=== PATIENT | male | born 1970 | race Caucasian/White ===

== ENCOUNTER → 2021-11-18 09:39 | Outpatient (CLI) | payer OTHER, SELFPAY ==
[2021-11-18 19:45] LABS: Add Manual Diff / Slide Review NO; Basophils Absolute Auto 0 /uL (0-100); Basophils Percent Auto 0.5 % (0-2); Eosinophils Absolute Auto 0 /uL (0-450); Eosinophils Percent Auto 0.9 % (2-4); Hemoglobin 14.9 g/dL (13.5-17.5); Lymphocytes Absolute Auto 2200 /uL (1100-4500); Lymphocytes Percent Auto 45.6 % (25-40); Mean Corpuscular HGB Conc 33.8 % (30-36); Mean Corpuscular Hemoglobin 31.1 PG (26-34); Mean Corpuscular Volume 91.9 fL (80-100); Monocytes Absolute Auto 400 /uL (0-900); Monocytes Percent Auto 7.7 % (3-14); Neutrophils Absolute Auto 2200 /uL (1500-7000); Neutrophils Percent Auto 45.3 % (50-75); Platelet Count 215 X10^3/uL (150-400); Red Blood Cell Count 4.79 X10^6/uL (4.5-5.9); Red Cell Distribution Width 13.5 % (11.6-14.8); White Blood Cell Count 4.8 X10^3/uL (4.5-11.0)
[2021-11-18 19:50] LABS: Alanine Aminotransferase 32 IU/L (<50); Albumin 4.3 g/dL (3.5-5.0); Albumin Globulin Ratio 1.4 (1.0-2.8); Alkaline Phosphatase 56 U/L (38-126); Aspartate Aminotransferase 36 IU/L (17-59); BUN Creatinine Ratio 15.6 (6-22); Bilirubin Total 0.4 mg/dL (0.2-1.3); Blood Urea Nitrogen 14 mg/dL (9-20); Calcium 8.8 mg/dL (8.4-10.2); Carbon Dioxide 29 mmol/L (22-32); Chloride 103 mmol/L (98-107); Cholesterol 167 mg/dL (140-199); Estimated Glomerular Filt Rate > 60 mL/min (>60); Glucose 105 mg/dL (70-100); HDL Cholesterol 36 mg/dL (40-60); HEMOLYSIS < 15 (0-50); Hemoglobin A1C% w Est Avg Glu 5.3 % (4.0-6.0); LDL Cholesterol Calculated 120 mg/dL (<100); Potassium 4.5 mmol/L (3.4-5.1); Sodium 139 mmol/L (137-145); Total Protein 7.3 g/dL (6.3-8.2); Triglycerides 56 mg/dL (35-150)
== END ==
PROVIDERS: PCP Family Medicine; Visit Provider Family Medicine
DX: Z00.00 Encounter for general adult medical examination without abnormal findings (principal)
CPT/HCPCS: 80053; 80061; 83036; 84153; 85025

== ENCOUNTER → 2022-06-29 12:10 | Outpatient (CLI) | payer OTHER, SELFPAY ==
[2022-06-29 19:35] LABS: Add Manual Diff / Slide Review NO; Basophils Absolute Auto 0 /uL (0-100); Basophils Percent Auto 0.3 % (0-2); Eosinophils Absolute Auto 0 /uL (0-450); Eosinophils Percent Auto 0.5 % (2-4); Hematocrit 43.6 % (41-53); Hemoglobin 14.8 g/dL (13.5-17.5); Lymphocytes Absolute Auto 1900 /uL (1100-4500); Lymphocytes Percent Auto 40.4 % (25-40); Mean Corpuscular Hemoglobin 30.9 PG (26-34); Mean Corpuscular Volume 90.9 fL (80-100); Monocytes Absolute Auto 300 /uL (0-900); Neutrophils Absolute Auto 2400 /uL (1500-7000); Neutrophils Percent Auto 51.8 % (50-75); Platelet Count 233 X10^3/uL (150-400); Red Blood Cell Count 4.79 X10^6/uL (4.5-5.9); Red Cell Distribution Width 13.6 % (11.6-14.8); White Blood Cell Count 4.7 X10^3/uL (4.5-11.0)
[2022-06-29 19:49] LABS: Rheumatoid Factor < 8.6 IU/mL (<12.0)
[2022-06-29 19:53] LABS: Alanine Aminotransferase 37 IU/L (<50); Albumin 4.2 g/dL (3.5-5.0); Albumin Globulin Ratio 1.5 (1.0-2.8); Alkaline Phosphatase 67 U/L (38-126); Aspartate Aminotransferase 39 IU/L (17-59); BUN Creatinine Ratio 14.9 (6-22); Bilirubin Total 0.7 mg/dL (0.2-1.3); Blood Urea Nitrogen 14 mg/dL (9-20); C-Reactive Protein Quant < 0.5 mg/dL (<1.0); Calcium 8.8 mg/dL (8.4-10.2); Carbon Dioxide 27 mmol/L (22-32); Chloride 104 mmol/L (98-107); Estimated Glomerular Filt Rate > 60 mL/min (>60); Globulin 2.8 g/dL (1.7-4.1); Glucose 87 mg/dL (70-100); HEMOLYSIS < 15 (0-50); Potassium 4.2 mmol/L (3.4-5.1); Sodium 139 mmol/L (137-145)
[2022-06-29 19:54] LABS: Erythrocyte Sedimentation Rate 1 MM/HR (0-15)
[2022-07-02 13:37] LABS: CCP Antibodies IgG/IgA 5 units (0-19)
[2022-07-03 18:22] LABS: ANA Screen, IFA Negative (.)
== END ==
PROVIDERS: PCP Family Medicine; Visit Provider Family Medicine
DX: L40.9 Psoriasis, unspecified (principal); M79.641 Pain in right hand; M79.642 Pain in left hand; Z79.1 Long term (current) use of non-steroidal anti-inflammatories (NSAID)
CPT/HCPCS: 80053; 85025; 85651; 86038; 86140; 86200; 86430

== ENCOUNTER → 2022-07-20 10:57 | Outpatient (CLI) | payer OTHER, SELFPAY ==
[2022-07-20 19:49] LABS: Cholesterol 145 mg/dL (140-199); HDL Cholesterol 37 mg/dL (40-60); LDL Cholesterol Calculated 98 mg/dL (<100); Triglycerides 51 mg/dL (35-150)
[2022-07-22 02:02] LABS: x Labcorp Estim. Avg Glu (eAG) 114 mg/dL (.); x Labcorp Hemoglobin A1c 5.6 % (4.8-5.6)
== END ==
PROVIDERS: PCP Family Medicine; Visit Provider Family Medicine
DX: R03.0 Elevated blood-pressure reading, without diagnosis of hypertension (principal); R73.9 Hyperglycemia, unspecified
CPT/HCPCS: 80061; 83036

== ENCOUNTER → 2022-11-16 14:07 | Outpatient (CLI) | payer OTHER, MEDICAID, SELFPAY ==
[2022-11-16 20:34] LABS: Erythrocyte Sedimentation Rate 1 MM/HR (0-15)
[2022-11-25 20:17] LABS: HLA B27 Negative (.)
== END ==
PROVIDERS: PCP Family Medicine; Visit Provider Internal Medicine Rheumatology
DX: M79.641 Pain in right hand (principal); M79.642 Pain in left hand; M79.671 Pain in right foot; M79.672 Pain in left foot; L40.9 Psoriasis, unspecified
CPT/HCPCS: 81374; 85651

== ENCOUNTER 2023-04-05 14:24 | Emergency (ER) | payer OTHER, SELFPAY ==
[2023-04-05 14:31] VITALS: BP 148/87; PULSE 82; RESP 16; TEMP 37.3; O2SAT 98; BMI 27.1
--- NOTE | 2023-04-05 14:47 | DI.US.S_ITS ---
PROCEDURE: US PERIPH VENOUS LOW EXTREM LT INDICATIONS: PAIN AND RECENT TRAVEL TECHNIQUE: Real-time imaging, as well as color and pulse Doppler interrogation, were performed of the lower extremity deep veins from the inguinal ligament to the popliteal fossa, with documentation of the visualized calf veins. COMPARISON: None. FINDINGS: There is occlusion of the paired posterior tibial veins. IMPRESSION: DVT within the posterior tibial veins. Dictated by: Betty Moscoso M.D. on 04/05/2023 at 16:20 Approved by: Betty Moscoso M.D. on 04/05/2023 at 16:21
--- NOTE | 2023-04-05 15:43 | ED_ITS ---
HPI - Extremity Problem <Carmela Phillips PA-C - Last Filed: 04/06/23 11:11> General Chief complaint: Extremity Problem,Nontraumatic Stated complaint: sent by pcp to rule out blood clot L leg Time Seen by Provider: 04/05/23 14:47 Source: patient Mode of arrival: Ambulatory History of Present Illness HPI Narrative: Patient is a 53-year-old male who presents with left calf pain x3 weeks. He does not remember any inciting injury. He did have an episode of long travel but it was after the pain started. The pain is better with activity and walking and worse with rest. He reports a family history of blood clots including his grandfather of a blood clot and his daughter recently had 2 blood clots. He has never had a blood clot before. He has not tried any specific therapy besides stretching. He denies any fever, chills, shortness of breath, chest pain, cough with bloody sputum, palpitations. He went to see his PCP on [place] this morning and was sent over to rule out DVT. Related Data Previous Rx's Medication Instructions Recorded diclofenac sodium 1 % topical gel 2 g topical QID #100 grams 06/24/22 (Voltaren Arthritis Pain) apixaban 5 mg tablet 5 mg PO BID DVT #200 tabs 04/05/23 Allergies Allergy/AdvReac Type Severity Reaction Status Date / Time levofloxacin Allergy Unknown Verified 04/05/23 09:54 Review of Systems <Carmela Phillips PA-C - Last Filed: 04/06/23 11:11> Review of Systems ROS Unobtainable: All systems reviewed & are unremarkable except as noted in HPI and below Patient History <Carmela Phillips PA-C - Last Filed: 04/06/23 11:11> Medical History MRSA (methicillin resistant Staphylococcus aureus) (~2009) Chicken pox PVCs (premature ventricular contractions) Well adult exam Skin lesion Borderline hyperglycemia Borderline hypertension Hx of epididymitis (~2020) Family History Father Prostate cancer Hypertension Hyperlipidemia Mother Breast cancer Grandfather History of blood clots Grandfather History of heart disease Hyperlipidemia Hypertension Social History Smoking Status: Former smoker Smoking Status: Former smoker Substance Use Type: does not use Exam <Carmela Phillips PA-C - Last Filed: 04/06/23 11:11> Narrative Exam Narrative: GENERAL: 53 year old patient appears stated age. Well-developed patient, in no acute distress. NEURO: AOx3. HEAD: Atraumatic. Normocephalic. EYES: Pupils equal round and reactive. Extraocular motions intact. No scleral icterus. No injection or drainage. ENT: Nose without bleeding or purulent drainage. Airway patent. RESPIRATORY: No distress. EXTREMITIES: Tenderness with palpation over the posterior left calf. There is no erythema, edema, warmth. Distal neurovascular exam is intact. SKIN: No rash or erythema of visible areas Initial Vital Signs Initial Vital Signs: Vital Signs Temperature 99.2 F 04/05/23 14:31 Pulse Rate 82 04/05/23 14:31 Respiratory Rate 16 04/05/23 14:31 Blood Pressure 148/87 H 04/05/23 14:31 Pulse Oximetry 98 04/05/23 14:31 Oxygen Delivery Method Room Air 04/05/23 14:31 <Lu Salinas DO - Last Filed: 04/07/23 07:28> Initial Vital Signs Initial Vital Signs: Vital Signs Temperature 99.2 F 04/05/23 14:31 Pulse Rate 82 04/05/23 14:31 Respiratory Rate 16 04/05/23 14:31 Blood Pressure 148/87 H 04/05/23 14:31 Pulse Oximetry 98 04/05/23 14:31 Oxygen Delivery Method Room Air 04/05/23 14:31 Scores <Carmela Phillips PA-C - Last Filed: 04/06/23 11:11> Wells' Criteria for DVT Active Cancer (Treatment within 6 months): No Bedridden recently >3 days or major surgery within 4 weeks: No Calf Swelling >3cm compared to other leg: No Collateral (nonvericose) superficial veins present: No Entire leg swollen: No Localized tenderness along the deep vein system: Yes Pitting edema, confined to symtomatic leg: No Paralysis, paresis, or recent plaster immobilization of ext: No Previously documented DVT: No Alternative dx to DVT as likely or more likely: No Wells' criteria for DVT: 1 <Lu Salinas DO - Last Filed: 04/07/23 07:28> Wells' Criteria for DVT Wells' criteria for DVT: 1 Course <Carmela Phillips PA-C - Last Filed: 04/06/23 11:11> Orders Ordered: Discontinued Medications Apixaban (Apixaban 5 Mg Tablet) 10 mg PO NOW ONE Stop: 04/05/23 16:43 Last Admin: 04/05/23 16:54 Dose: 10 mg Documented By: YAYO Vital Signs Vital signs: Vital Signs - 8 hr 04/05/23 14:31 Temperature 99.2 F Pulse Rate 82 Respiratory Rate 16 Blood Pressure 148/87 H Pulse Oximetry 98 Oxygen Delivery Method Room Air <Lu Salinas DO - Last Filed: 04/07/23 07:28> Orders Ordered: Discontinued Medications Apixaban (Apixaban 5 Mg Tablet) 10 mg PO NOW ONE Stop: 04/05/23 16:43 Last Admin: 04/05/23 16:54 Dose: 10 mg Documented By: YAYO Vital Signs Vital signs: Vital Signs - 8 hr 04/05/23 14:31 Temperature 99.2 F Pulse Rate 82 Respiratory Rate 16 Blood Pressure 148/87 H Pulse Oximetry 98 Oxygen Delivery Method Room Air MDM - Extremity (Nontraumatic) <Carmela Phillips PA-C - Last Filed: 04/06/23 11:11> Imaging Data US - DVT: Radiologist's Impression: PROCEDURE: US PERIPH VENOUS LOW EXTREM LT INDICATIONS: PAIN AND RECENT TRAVEL TECHNIQUE: Real-time imaging, as well as color and pulse Doppler interrogation, were performed of the lower extremity deep veins from the inguinal ligament to the popliteal fossa, with documentation of the visualized calf veins. COMPARISON: None. FINDINGS: There is occlusion of the paired posterior tibial veins. IMPRESSION: DVT within the posterior tibial veins. Dictated by: Betty Moscoso M.D. on 04/05/2023 at 16:20 Approved by: Betty Moscoso M.D. on 04/05/2023 at 16:21 [facility] Narrative Medical decision making narrative: Multiple etiologies for patient's symptoms considered including, but not limited to: DVT, muscle strain Low pretest suspicion for DVT based on exam but patient has significant family history of blood clots. We will obtain ultrasound study. Ultrasound shows occlusion of the left paired posterior tibial veins. Patient notified of the results. We will start on Eliquis, 10 mg b.i.d. x1 week, then 5 mg b.i.d. for at least 3 months. Patient instructed to follow up with primary care to reassess whether he needs ongoing therapy. Given family history and unprovoked DVT, would also consider Hematology consult to evaluate for underlying clotting disorder. Discussed avoiding NSAIDs my Tylenol for pain control, can try compression stockings for pain control. Emergent return if any shortness of breath, chest pain, cough with bloody sputum. Avoid unnecessary high-risk activities that could result in bleeding especially had bleeding, especially given remote location on [place]. Patient has no further questions and understands the plan of care. Patient's symptoms improved over duration of stay with above-stated therapies. Findings and discharge diagnosis discussed with patient/family followed by verbalization of understanding Return precautions discussed with patient/family whom verbalize understanding of diagnosis and plan Discharge Plan Departure Patient Disposition: Home Clinical Impression: DVT (deep venous thrombosis) Qualifiers: DVT location: lower extremity Affected thrombotic vein of extremity: tibial Chronicity: acute Laterality: left Qualified Code(s): I82.442 - Acute embolism and thrombosis of left tibial vein Instructions: DI for Deep Vein Thrombosis Activity Restrictions/Additional Instructions: *You have been diagnosed with deep vein thrombosis of the left paired posterior tibial veins. The treatment for this is apixaban. If the dose is 2 pills twice a day for 1 week then 1 pill twice a day for at least 3 months. Please follow up with your primary care to determine if you need to be treated for longer than 3 months. You are at increased risk of bleeding while taking this medication, so avoid unnecessarily dangerous activities. Also avoid other medications that thin your blood such as ibuprofen or other NSAIDs. *What to do: *Please continue to take your regular medications as directed. [x] New medication prescriptions sent to your pharmacy: [facility] [ ] New medication written as a paper prescription [ ] No new medications given *Please follow up with your primary care provider in 2-3 days, call for an appointment. Let them know you were seen in the Emergency Department and that we ask that you be seen in follow up. We will electronically transmit a record of today's note if your PCP is in our system *If you do not have a primary care provider please contact the [facility] Resource line at [phone]. They will ask some questions about your medical history and help get you set up with a doctor in the community. *Return to Emergency Department if you should have any new, worsening or concerning symptoms, such as [fever greater than 101 F, shaking chills, worsening pain, persistent vomiting or other concerning symptoms]. Prescriptions: New apixaban 5 mg tablet 5 mg PO BID Qty: 200 0RF Rx Instructions: 2 tabs twice daily for 7 days, then 1 tab twice daily. Take for minimum 3 months. No Action diclofenac sodium [Voltaren Arthritis Pain] 1 % gel 2 g topical QID Qty: 100 5RF Rx Instructions: apply to single elbow, wrist or hand; for hand includes palm/fingers/back of hand Referrals: Katarina Ocasio MD [Primary Care Provider] - Stand Alone Forms: Patient Portal/API ED Sign-out <Lu Salinas DO - Last Filed: 04/07/23 07:28> Cosign ED Attending Coletteature Attestation: I was available for consultation.
[2023-04-05 16:50] VITALS: BP 135/81; PULSE 66; RESP 18; O2SAT 100
[2023-04-05] MEDS: APIXABAN 5 MG TABLET 10 MG PO (16:54)
== END 2023-04-05 16:59 | disposition home or self-care (01) ==
PROVIDERS: Emergency Provider Physician Assistant; PCP Family Medicine
DX: I82.442 Acute embolism and thrombosis of left tibial vein (principal)
CPT/HCPCS: 93971; 99283

== ENCOUNTER 2024-04-02 09:06 | Emergency (ER) | payer OTHER, SELFPAY ==
[2024-04-02 09:11] VITALS: BP 187/90; PULSE 63; RESP 14; TEMP 36.6; O2SAT 98; BMI 27.1
--- NOTE | 2024-04-02 09:14 | DI.US.S_ITS ---
PROCEDURE: US PERIPH VENOUS LOW EXTREM RT INDICATIONS: Please evaluate for DVT TECHNIQUE: Real-time imaging, as well as color and pulse Doppler interrogation, were performed of the lower extremity deep veins from the inguinal ligament to the popliteal fossa, with documentation of the visualized calf veins. COMPARISON: None. FINDINGS: The common femoral, femoral, popliteal, and the visualized calf veins are normally compressible, and free of intraluminal thrombus. Color and pulse Doppler demonstrate normal phasic intraluminal flow. There is normal augmentation response to distal compression maneuver. Superficial venous thrombosis can be seen, with thrombus within the soleus vein within the right posterior calf, at the area of pain. IMPRESSION: Thrombosis can be seen within the soleus vein of the calf. No findings of lower extremity deep venous thrombosis. Dictated by: Sheldon Aburto M.D. on 04/02/2024 at 9:07 Approved by: Sheldon Aburto M.D. on 04/02/2024 at 9:09
--- NOTE | 2024-04-02 11:24 | ED_ITS ---
HPI - Extremity Problem <Briana Tabares PA-C - Last Filed: 04/02/24 14:10> General Chief complaint: Extremity Problem,Nontraumatic Stated complaint: Per patient, Might have DVT Time Seen by Provider: 04/02/24 11:24 Source: patient Mode of arrival: Ambulatory History of Present Illness HPI Narrative: 54-year-old male with past medical history DVT, PE presents to the ED with 2 days of right calf pain. Patient states that he had a minor fall off a ladder about a foot high. Patient is able to bear weight and walk. Endorses some tenderness to the right calf. No chest pain, shortness of breath, fever, chills, abdominal pain, lightheadedness, dizziness, syncope. Patient had a lower extremity DVT in March 2023, a few days after which he also had a pulmonary embolism. Patient was anticoagulated at that time. Patient is currently not on any anticoagulation. Related Data Previous Rx's Medication Instructions Recorded diclofenac sodium 1 % topical gel 2 g topical QID #100 grams 06/24/22 (Voltaren Arthritis Pain) apixaban 5 mg tablet 5 mg PO BID DVT #200 tabs 04/05/23 apixaban 5 mg (74 tabs) tablets in See Rx Instructions PO .COMPLEX 04/02/24 a dose pack (Eliquis DVT-PE Treat #74 ea 30D Start) Allergies Allergy/AdvReac Type Severity Reaction Status Date / Time levofloxacin Allergy Unknown Verified 04/02/24 09:11 Review of Systems <Briana Tabares PA-C - Last Filed: 04/02/24 14:10> Constitutional Constitutional: Denies chills, Denies fatigue, Denies fever(s), Denies frequent falls, Denies lethargy and Denies weakness Eyes Eyes: Denies change in vision, Denies eye discharge, Denies irritation and Denies loss of vision ENT Ears, Nose, Mouth, and Throat: Denies change in voice, Denies dizziness, Denies neck pain, Denies sore throat and Denies throat swelling Cardiovascular Cardiovascular: Denies chest pain, Denies irregular heart rhythm, Denies lightheadedness, Denies palpitations, Denies dyspnea, Denies dyspnea on exertion and Denies orthopnea Respiratory Respiratory: Denies cough, Denies dyspnea, Denies dyspnea on exertion and Denies wheezing Gastrointestinal Gastrointestinal: Denies abdominal pain, Denies change in bowel habits, Denies diarrhea, Denies nausea and Denies vomiting Musculoskeletal Musculoskeletal: Denies neck pain and Denies numbness Comments: Right-sided calf pain Integumentary/Breasts Skin/Breast: Denies pruritus, Denies erythema, Denies rash and Denies wounds Neurologic Neurologic: Denies behavioral changes, Denies confusion, Denies dizziness, Denies frequent falls, Denies loss of vision, Denies numbness and Denies weakness Psychiatric Psychiatric: Denies anxiety, Denies behavioral changes, Denies confusion, Denies depression, Denies homicidal ideation and Denies suicidal ideation Endocrine Endocrine: Denies fatigue, Denies flushing and Denies palpitations Hematologic/Lymphatic Hematologic/Lymphatic: Denies easy bruising Allergic/Immunologic Allergic/Immunologic: Denies urticaria, Denies throat swelling and Denies wheezing Patient History <Briana Tabares PA-C - Last Filed: 04/02/24 14:10> Medical History MRSA (methicillin resistant Staphylococcus aureus) (~2009) Chicken pox PVCs (premature ventricular contractions) Well adult exam Skin lesion Borderline hyperglycemia Borderline hypertension Hx of epididymitis (~2020) Family History Father Prostate cancer Hypertension Hyperlipidemia Mother Breast cancer Grandfather History of blood clots Grandfather History of heart disease Hyperlipidemia Hypertension Social History Smoking Status: Former smoker Smoking Status: Former smoker Exam <Briana Tabares PA-C - Last Filed: 04/02/24 14:10> Narrative Exam Narrative: Const General:?cooperative, healthy appearing and comfortable [facility] Head:?normal to inspection Ears:?hearing grossly normal bilaterally Nose:?external nose normal Face and sinus:?normal facial exam and sinuses nontender Mouth:?oral mucosae normal Throat:?posterior oropharynx normal Eyes General:?appearance normal, both eyes and all related structures Neck Neck:?normal visual inspection and no lymphadenopathy noted Resp Effort & Inspection:?normal respiratory effort Auscultation:?clear to auscultation bilaterally Cardio Rate:?regular rate Rhythm:?regular rhythm Musculoskeletal There is some tenderness to palpation of the right calf. No palpable cords. Neurovascularly intact. Neuro General:?patient alert, patient awake and patient oriented x3 Initial Vital Signs Initial Vital Signs: Vital Signs Temperature 97.8 F 04/02/24 09:11 Pulse Rate 63 04/02/24 09:11 Respiratory Rate 14 04/02/24 09:11 Blood Pressure 187/90 H 04/02/24 09:11 Pulse Oximetry 98 04/02/24 09:11 Oxygen Delivery Method Room Air 04/02/24 09:11 <Lu Salinas DO - Last Filed: 04/06/24 11:09> Initial Vital Signs Initial Vital Signs: Vital Signs Temperature 97.8 F 04/02/24 09:11 Pulse Rate 63 04/02/24 09:11 Respiratory Rate 14 04/02/24 09:11 Blood Pressure 187/90 H 04/02/24 09:11 Pulse Oximetry 98 04/02/24 09:11 Oxygen Delivery Method Room Air 04/02/24 09:11 Course <Briana Tabares PA-C - Last Filed: 04/02/24 14:10> Orders Ordered: Discontinued Medications Apixaban (Apixaban 5 Mg Tablet) 10 mg PO NOW ONE Stop: 04/02/24 11:48 Last Admin: 04/02/24 12:00 Dose: 10 mg Documented By: CHERELLE Vital Signs Vital signs: Vital Signs - 8 hr 04/02/24 09:11 Temperature 97.8 F Pulse Rate 63 Respiratory Rate 14 Blood Pressure 187/90 H Pulse Oximetry 98 Oxygen Delivery Method Room Air <Lu Salinas DO - Last Filed: 04/06/24 11:09> Orders Ordered: Discontinued Medications Apixaban (Apixaban 5 Mg Tablet) 10 mg PO NOW ONE Stop: 04/02/24 11:48 Last Admin: 04/02/24 12:00 Dose: 10 mg Documented By: CHERELLE Vital Signs Vital signs: Vital Signs - 8 hr 04/02/24 09:11 Temperature 97.8 F Pulse Rate 63 Respiratory Rate 14 Blood Pressure 187/90 H Pulse Oximetry 98 Oxygen Delivery Method Room Air MDM - Extremity (Nontraumatic) <VELMA Mattson Last Filed: 04/02/24 14:10> MDM Narrative Medical decision making narrative: 54-year-old male with past medical history DVT, PE presents to the ED with 2 days of right calf pain. Ultrasound was obtained which shows a thrombosis of the soleus vein of the right calf. Discussed findings with patient. Started patient on Eliquis. First dose given in the ED. 30 day dose of Eliquis prescribed. Patient agrees to follow-up with PCP for further evaluation. ED return precautions discussed with patient. Patient verbalized understanding. Medical records reviewed: Yes Discharge Plan Departure Patient Disposition: Home Clinical Impression: DVT (deep venous thrombosis) Qualifiers: DVT location: lower extremity Affected thrombotic vein of extremity: calf muscle vein Chronicity: acute Laterality: right Qualified Code(s): I82.461 - Acute embolism and thrombosis of right calf muscular vein Instructions: DI for Deep Vein Thrombosis Activity Restrictions/Additional Instructions: You were evaluated in the ED today for calf pain. The ultrasound shows a deep vein thrombosis in the soleus vein of the right calf. You are being started on Eliquis for anticoagulation. Your 1st dose was given in the ED. Your 30-day prescription has been sent to [facility]. Please follow-up with your PCP as soon as possible for further evaluation and extension of the prescription as indicated. Blood thinners such as Eliquis can make you more prone to bleeding, therefore please practice good fall precautions. Please also monitor for symptoms such as chest pain, shortness of breath, cough as these could signal a pulmonary embolism. Please return to the ED or call 911 if you are experiencing worsening symptoms. Prescriptions: New Eliquis DVT-PE Treat 30D Start 5 mg (74 tabs) tablets,dose pack See Rx Instructions .ROUTE .COMPLEX Qty: 74 0RF Rx Instructions: orally per package directions No Action apixaban 5 mg tablet 5 mg PO BID Qty: 200 0RF Rx Instructions: 2 tabs twice daily for 7 days, then 1 tab twice daily. Take for minimum 3 months. diclofenac sodium [Voltaren Arthritis Pain] 1 % gel 2 g topical QID Qty: 100 5RF Rx Instructions: apply to single elbow, wrist or hand; for hand includes palm/fingers/back of hand Referrals: Katarina Ocasio MD [Primary Care Provider] - Stand Alone Forms: Patient Portal/API/Survey ED Sign-out <Lu Salinas DO - Last Filed: 04/06/24 11:09> Cosign ED Attending Cosshruthiature Attestation: I was available for consultation.
[2024-04-02] MEDS: APIXABAN 5 MG TABLET 10 MG PO (12:00)
--- NOTE | 2024-04-02 12:02 | PC.NURSE ---
[place] time assessing pt is at time of discharge, refer to ALESSANDRA Mattson's note for assessment
== END 2024-04-02 12:04 | disposition home or self-care (01) ==
PROVIDERS: Emergency Provider Student in an Organized Health Care Education/Training Program; PCP Family Medicine
DX: I82.461 Acute embolism and thrombosis of right calf muscular vein (principal); W11.XXXA Fall on and from ladder, initial encounter; Z86.711 Personal history of pulmonary embolism; Z79.01 Long term (current) use of anticoagulants
CPT/HCPCS: 93971; 99283